=== PATIENT | male | born 1995 | race Caucasian/White ===

== ENCOUNTER 2017-02-18 20:52 | Observation (INO) | payer OTHER ==
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
--- NOTE | 2017-02-19 00:16 | ED PDOC ---
- ECG O2 Sat by Pulse Oximetry: 99 (RA) - Progress ED Course And Treament: Case endorsed to field underwriter from Magdalena ABDULLAHI pending podiatry eval. Disposition - Clinical Impression Clinical Impression: Ankle dislocation - POA Present On Arrival: None - Disposition Disposition: Routine/Home Disposition Time: 02:36 Condition: STABLE ED OBSERVATION Date of observation admission: 02/19/17 Time of observation admission: 00:15 - Observation admission statement Patient is being placed in observation because:: ankle dislocation - Goals of Observation Goals of observation are:: perform reduction of ankle dislocation - Progress Note Progress Note: 02/19/17 00:16 Podiatry at bedside, will perform reduction of ankle under conscious sedation Consent obtained for conscious sedation by field underwriter. Patient resting comfortably 1:25 Reduction procedure started. Patient given sedation medications Procedure performed by podiatry, post reduction film ordered, patient placed in cast. 2:00 Patient awake, states no acute complaints. Vitals stable 2:30 Patient resting comfortably. Patient/family educated on findings, discharged with instructions to follow up podiatry as scheduled. Crutches given for nonweight bearing with demonstration on use. Rx ibuprofen given. Return to ED for worsening/concerning symptoms.
[2017-02-19] MEDS ORDERED: Propofol 10 mg/ml Inj (20 ML) ONE (00:45)
[2017-02-19] MEDS ORDERED: Propofol 10 mg/ml Inj (20 ML) IV ONE (00:54)
[2017-02-19] MEDS ORDERED: Sodium Chloride 0.9% 1,000 ML IV STA (00:55)
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
[2017-02-19 01:55] VITALS: BP 137/57; PULSE 82; RESP 14; TEMP 98
[2017-02-19 02:38] VITALS: O2SAT 99
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
--- NOTE | 2017-02-19 10:56 | CT ---
PROCEDURE: HISTORY: Ankle and foot fracture/dislocation COMPARISON: TECHNIQUE: FINDINGS: Evaluation demonstrates an osteochondral defect along the lateral talar dome measuring 9 x 9 millimeters with adjacent bone fragments. There is an associated joint effusion as well as widening of the lateral ankle mortise. Findings are also noted compatible with prior anterior inferior tibiotalar, anterior talofibular and calcaneofibular ligament partial tear is. There is no evidence of acute fracture. Mild lateral ankle soft tissue swelling is noted. IMPRESSION: Lateral talar dome osteochondral defect measuring 9 x 9 millimeters with associated bony fragments in the lateral ankle mortise with lateral ankle mortise widening.
--- NOTE | 2017-02-19 11:08 | CT ---
PROCEDURE: HISTORY: foot fracture COMPARISON: TECHNIQUE: FINDINGS: There is no evidence of fracture dislocation. No significant soft tissue abnormality is observed. IMPRESSION: No evidence of fracture. Please see CT ankle report.
--- NOTE | 2017-02-19 14:47 | RAD ---
HISTORY: closed reduction of subtalar joint of left foot COMPARISON: No prior FINDINGS: BONES: Normal. No fracture. JOINTS: Normal. No osteoarthritis. SOFT TISSUE: Normal. OTHER FINDINGS: None . IMPRESSION: Normal Bone Xray.
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
== END 2017-02-19 02:59 | disposition home or self-care (01) ==
LOC: H.ER 20:52 → H.EROBSV 02-19 00:14
PROVIDERS: ADMIT Emergency Medicine; ATTEND Emergency Medicine
DX: S93.05XA Dislocation of left ankle joint, initial encounter (principal); V43.62XA Car passenger injured in collision with other type car in traffic accident, initial encounter; Y92.9 Unspecified place or not applicable
CPT/HCPCS: 27842; 73600; 73610; 73630; 73700; 96360; 96361; 99283; G0378; J2704; J7040